=== PATIENT | male | born 1945 | race Caucasian/White ===

== ENCOUNTER 2020-03-08 20:43 | Inpatient (IN) | payer MEDICARE ==
[~2020-03-08] VITALS: Ht 175.3 cm; Wt 83.5 kg
[~2020-03-08 20:43] MED LIST: ALLOPURINOL100 MG PO; GEMFIBROZIL600 MG PO; GLIMEPIRIDE2 MG PO; METFORMIN HCL500 MG PO
[2020-03-08] MEDS ORDERED: SODIUM CHLORIDE 0.9% 1000ML 1,000 ML IV ONE (21:00)
[2020-03-08 21:10] LABS: BASOPHILS # (AUTO) 0.1 (0.0-0.1); BASOPHILS % 0.6 % (0.0-1.0); EOSINOPHILS # (AUTO) 0.3 (0.0-0.4); EOSINOPHILS % 3.2 % (0.0-6.0); HEMATOCRIT 33.1 % (38.2-49.6); HEMOGLOBIN 10.6 g/dL (14.0-18.0); LYMPHOCYTES % 11.9 % (18.0-39.1); MEAN CORPUSCULAR HEMOGLOBIN 27.7 pg (28-32); MEAN CORPUSCULAR VOLUME 86.4 fL (81-99); MONOCYTES # (AUTO) 0.9 (0.2-0.8); MONOCYTES % 10.3 % (4.4-11.3); NEUTROPHILS # (AUTO) 6.4 (2.1-6.9); NEUTROPHILS % 72.7 % (38.7-80.0); PLATELET COUNT 344 x10e3/uL (140-360); RED BLOOD COUNT 3.83 x10e6/uL (4.3-5.7); RED CELL DISTRIBUTION WIDTH 13.5 % (11.7-14.4)
[2020-03-08 21:28] LABS: ALBUMIN 3.1 g/dL (3.5-5.0); ALBUMIN/GLOBULIN RATIO 0.6 (0.8-2.0); ANION GAP 15.8 mmol/L (8-16); BLOOD UREA NITROGEN 35 mg/dL (7-26); BUN/CREATININE RATIO 20 (6-25); CALCIUM 9.1 mg/dL (8.4-10.2); CARBON DIOXIDE 21 mmol/L (22-29); CHLORIDE 104 mmol/L (98-107); CREATINE KINASE 18 IU/L (30-200); CREATININE, SERUM 1.71 mg/dL (0.72-1.25); EST GLOMERULAR FILTRATION RATE 39 ML/MIN (60-); GLUCOSE 167 mg/dL (74-118); POTASSIUM 4.8 mmol/L (3.5-5.1); SODIUM 136 mmol/L (136-145)
[2020-03-08 21:30] LABS: ALANINE AMINOTRANSFERASE < 6 IU/L (0-55)
[2020-03-08 21:53] LABS: CLARITY,URINE CLOUDY (CLEAR); COLOR,URINE YELLOW (YELLOW); KETONES,URINE NEGATIVE (NEGATIVE); LEUKOCYTE ESTERASE ,URINE MODERATE (NEGATIVE); NITRITE,URINE POSITIVE (NEGATIVE); PROTEIN,URINE DIPSTICK 2+ (NEGATIVE); URINE UROBILINOGEN 0.2 mg/dL (0.2 - 1)
[2020-03-08 21:55] LABS: ALKALINE PHOSPHATASE 89 IU/L (40-150)
[2020-03-08 22:04] LABS: BACTERIA,URINE MANY /HPF; EPITHELIAL CELLS,URINE FEW /LPF; WBC,URINE (MAN) >50 /HPF (0-5)
[2020-03-08] MEDS ORDERED: DEXTROSE 50% SYRINGE 50 ML IV PRN (22:30)
[2020-03-08] MEDS ORDERED: ACETAMINOPHEN 325 MG TAB PO PRN (22:30)
[2020-03-08] MEDS: SODIUM CHLORIDE 0.9% 1000ML 1,000 ML IV SCH (23:25)
[2020-03-08] MEDS: PIPERACILLIN/TAZO 2.25 GM 50 ML IV SCH (23:26)
[2020-03-09] VITALS (10 sets, daily range): BP systolic 108–134; BP diastolic 54–74
[2020-03-09] MEDS ORDERED: PRALUENT P75 MG/1 ML SC (01:37)
[2020-03-09] MEDS ORDERED: PRAMIPEXOLE D0.25 MG PO (01:37)
[2020-03-09] MEDS ORDERED: FLUCONAZOLE100 MG PO (01:37)
[2020-03-09] MEDS ORDERED: FLOMAX0.4 MG PO (01:37)
[2020-03-09] MEDS ORDERED: RYTARY ER 36.21 EACH PO (01:37)
[2020-03-09] MEDS ORDERED: ASPIRIN81 MG PO (01:37)
[2020-03-09 06:13] LABS: BASOPHILS # (AUTO) 0.1 (0.0-0.1); BASOPHILS % 0.6 % (0.0-1.0); EOSINOPHILS # (AUTO) 0.1 (0.0-0.4); EOSINOPHILS % 1.2 % (0.0-6.0); HEMATOCRIT 29.6 % (38.2-49.6); HEMOGLOBIN 9.5 g/dL (14.0-18.0); LYMPHOCYTES # (AUTO) 1.3 (1.0-3.2); LYMPHOCYTES % 14.2 % (18.0-39.1); MEAN CORPUSCULAR HEMOGLOBIN 27.9 pg (28-32); MEAN CORPUSCULAR HGB CONC 32.1 g/dL (31-35); MEAN CORPUSCULAR VOLUME 86.8 fL (81-99); MONOCYTES # (AUTO) 0.9 (0.2-0.8); MONOCYTES % 9.9 % (4.4-11.3); NEUTROPHILS # (AUTO) 6.6 (2.1-6.9); NEUTROPHILS % 73.4 % (38.7-80.0); PLATELET COUNT 301 x10e3/uL (140-360); RED BLOOD COUNT 3.41 x10e6/uL (4.3-5.7); RED CELL DISTRIBUTION WIDTH 13.6 % (11.7-14.4)
[2020-03-09] MEDS: SODIUM CHLORIDE 0.9% 1000ML 1,000 ML IV SCH ×3 (06:16→20:59)
[2020-03-09 06:37] LABS: ALBUMIN 2.7 g/dL (3.5-5.0); ALBUMIN/GLOBULIN RATIO 0.6 (0.8-2.0); ALKALINE PHOSPHATASE 78 IU/L (40-150); ANION GAP 13.5 mmol/L (8-16); BLOOD UREA NITROGEN 30 mg/dL (7-26); BUN/CREATININE RATIO 23 (6-25); CALCIUM 8.5 mg/dL (8.4-10.2); CARBON DIOXIDE 20 mmol/L (22-29); CHLORIDE 108 mmol/L (98-107); CREATININE, SERUM 1.32 mg/dL (0.72-1.25); EST GLOMERULAR FILTRATION RATE 53 ML/MIN (60-); GLUCOSE 110 mg/dL (74-118); POTASSIUM 4.5 mmol/L (3.5-5.1); SODIUM 137 mmol/L (136-145)
[2020-03-09 06:41] LABS: ALANINE AMINOTRANSFERASE < 6 IU/L (0-55)
[2020-03-09] MEDS: INSULIN REGULAR, HUMAN 100 UNIT/1 ML 3ML VIAL SQ SCH ×4 (07:30→20:59)
[2020-03-09] MEDS: CARBIDOPA PO SCH ×3 (09:00→20:59)
[2020-03-09] MEDS: LEVODOPA PO SCH ×3 (09:00→20:59)
[2020-03-09] MEDS ORDERED: TAMSULOSIN HCL 0.4 MG CAP PO SCH (09:00)
[2020-03-09] MEDS: ASPIRIN 81 MG CHEW TAB PO SCH (09:44)
[2020-03-09] MEDS: FLUCONAZOLE 100 MG TAB PO SCH (09:45)
[2020-03-09] MEDS: GEMFIBROZIL 600 MG TAB PO SCH ×2 (09:45→17:18)
[2020-03-09] MEDS: PRAMIPEXOLE DIHYDROCHLORIDE 0.25 MG TAB PO SCH ×3 (09:45→20:59)
[2020-03-09] MEDS: PIPERACILLIN/TAZO 2.25 GM 50 ML IV SCH ×2 (10:28→22:45)
[2020-03-09] MEDS: TAMSULOSIN HCL 0.4 MG CAP PO SCH (20:58)
[2020-03-10] VITALS (8 sets, daily range): BP systolic 122–150; BP diastolic 56–101
[2020-03-10 05:49] LABS: ANION GAP 13.5 mmol/L (8-16); CALCIUM 8.2 mg/dL (8.4-10.2); CREATININE, SERUM 1.31 mg/dL (0.72-1.25); POTASSIUM 4.5 mmol/L (3.5-5.1)
[2020-03-10] MEDS: SODIUM CHLORIDE 0.9% 1000ML 1,000 ML IV SCH ×2 (06:36→15:44)
[2020-03-10] MEDS: INSULIN REGULAR, HUMAN 100 UNIT/1 ML 3ML VIAL SQ SCH ×5 (07:30→21:00)
[2020-03-10] MEDS: ASPIRIN 81 MG CHEW TAB PO SCH (09:05)
[2020-03-10] MEDS: FLUCONAZOLE 100 MG TAB PO SCH (09:05)
[2020-03-10] MEDS: GEMFIBROZIL 600 MG TAB PO SCH ×2 (09:05→18:00)
[2020-03-10] MEDS: PRAMIPEXOLE DIHYDROCHLORIDE 0.25 MG TAB PO SCH ×3 (09:07→20:25)
[2020-03-10] MEDS: LEVODOPA PO SCH ×3 (09:10→20:26)
[2020-03-10] MEDS: CARBIDOPA PO SCH ×3 (09:10→20:26)
[2020-03-10] MEDS: PIPERACILLIN/TAZO 2.25 GM 50 ML IV SCH (09:30)
[2020-03-10] MEDS: PIPER-TAZ 3.375 GM 50 ML IV SCH (18:42)
[2020-03-10] MEDS: TAMSULOSIN HCL 0.4 MG CAP PO SCH (20:00)
[2020-03-11] VITALS: BP 136/73
[2020-03-11 04:00] VITALS: BP 133/72
[2020-03-11] MEDS: PIPER-TAZ 3.375 GM 50 ML IV SCH ×5 (06:00→23:10)
[2020-03-11] MEDS: SODIUM CHLORIDE 0.9% 1000ML 1,000 ML IV SCH ×3 (06:30→16:44)
[2020-03-11] MEDS: INSULIN REGULAR, HUMAN 100 UNIT/1 ML 3ML VIAL SQ SCH ×4 (07:30→20:39)
[2020-03-11 07:35] VITALS: BP 120/53
[2020-03-11] MEDS: PRAMIPEXOLE DIHYDROCHLORIDE 0.25 MG TAB PO SCH ×3 (08:32→20:06)
[2020-03-11] MEDS: LEVODOPA PO SCH ×3 (08:32→20:06)
[2020-03-11] MEDS: ASPIRIN 81 MG CHEW TAB PO SCH (08:32)
[2020-03-11] MEDS: CARBIDOPA PO SCH ×3 (08:32→20:06)
[2020-03-11] MEDS: GEMFIBROZIL 600 MG TAB PO SCH ×2 (08:33→16:44)
[2020-03-11] MEDS: FLUCONAZOLE 100 MG TAB PO SCH (08:42)
[2020-03-11 15:14] VITALS: BP 140/70
[2020-03-11 20:00] VITALS: BP 143/68
[2020-03-11] MEDS: TAMSULOSIN HCL 0.4 MG CAP PO SCH (20:06)
[2020-03-12] VITALS: BP 127/65
[2020-03-12 04:00] VITALS: BP 131/73
[2020-03-12] MEDS: PIPER-TAZ 3.375 GM 50 ML IV SCH ×2 (05:54→11:58)
[2020-03-12] MEDS: SODIUM CHLORIDE 0.9% 1000ML 1,000 ML IV SCH ×2 (05:54→06:30)
[2020-03-12 06:46] LABS: BASOPHILS # (AUTO) 0.1 (0.0-0.1); BASOPHILS % 1.3 % (0.0-1.0); EOSINOPHILS # (AUTO) 0.5 (0.0-0.4); EOSINOPHILS % 9.5 % (0.0-6.0); HEMATOCRIT 27.5 % (38.2-49.6); HEMOGLOBIN 8.6 g/dL (14.0-18.0); LYMPHOCYTES # (AUTO) 1.5 (1.0-3.2); LYMPHOCYTES % 26.7 % (18.0-39.1); MEAN CORPUSCULAR HEMOGLOBIN 27.7 pg (28-32); MEAN CORPUSCULAR HGB CONC 31.3 g/dL (31-35); MEAN CORPUSCULAR VOLUME 88.7 fL (81-99); MONOCYTES # (AUTO) 0.8 (0.2-0.8); MONOCYTES % 14.6 % (4.4-11.3); NEUTROPHILS # (AUTO) 2.6 (2.1-6.9); NEUTROPHILS % 47.2 % (38.7-80.0); PLATELET COUNT 299 x10e3/uL (140-360); RED CELL DISTRIBUTION WIDTH 13.8 % (11.7-14.4)
[2020-03-12 07:09] LABS: ANION GAP 11.3 mmol/L (8-16); CALCIUM 8.2 mg/dL (8.4-10.2); CREATININE, SERUM 1.23 mg/dL (0.72-1.25); POTASSIUM 4.3 mmol/L (3.5-5.1)
[2020-03-12] MEDS: INSULIN REGULAR, HUMAN 100 UNIT/1 ML 3ML VIAL SQ SCH ×2 (07:30→11:30)
[2020-03-12] MEDS: FLUCONAZOLE 100 MG TAB PO SCH (08:15)
[2020-03-12] MEDS: LEVODOPA PO SCH (08:15)
[2020-03-12] MEDS: CARBIDOPA PO SCH (08:15)
[2020-03-12] MEDS: ASPIRIN 81 MG CHEW TAB PO SCH (08:15)
[2020-03-12] MEDS: GEMFIBROZIL 600 MG TAB PO SCH (08:15)
[2020-03-12] MEDS: PRAMIPEXOLE DIHYDROCHLORIDE 0.25 MG TAB PO SCH (08:15)
[2020-03-12 08:22] VITALS: BP 131/69
[2020-03-12 08:41] VITALS: BP 131/69
[2020-03-12] MEDS ORDERED: BACTRIM DS TAB1 EACH PO (09:21)
[2020-03-12 12:23] VITALS: BP 144/77
== END 2020-03-12 12:20 | disposition home or self-care (01) | DRG 872 ==
LOC: ER 20:53 → ERHOLD 22:31 → MED/SURG3 03-09 00:02
PROVIDERS: ADMIT Family Medicine; ATTEND Family Medicine
DX: A41.9 Sepsis, unspecified organism (principal); N39.0 Urinary tract infection, site not specified; N17.9 Acute kidney failure, unspecified; N18.4 Chronic kidney disease, stage 4 (severe); I69.320 Aphasia following cerebral infarction; I25.2 Old myocardial infarction; E78.5 Hyperlipidemia, unspecified; E11.9 Type 2 diabetes mellitus without complications; I25.10 Atherosclerotic heart disease of native coronary artery without angina pectoris; Z20.828 Contact with and (suspected) exposure to other viral communicable diseases; I12.9 Hypertensive chronic kidney disease with stage 1 through stage 4 chronic kidney disease, or unspecified chronic kidney disease
CPT/HCPCS: 36415; 71045; 74176; 80048; 80053; 81001; 82550; 82553; 82948; 83605; 84484; 85025; 87040; 87071; 87086; 87186; 87205; 87400; 93005; 99284; J1817; J2543; J7030; U0002

== ENCOUNTER 2020-04-29 15:45 | Inpatient (IN) | payer MEDICARE ==
[~2020-04-29] VITALS: Ht 172.7 cm; Wt 89.8 kg
[~2020-04-29 15:45] MED LIST changes: +ASPIRIN81 MG PO; +BACTRIM DS TAB1 EACH PO; +FLOMAX0.4 MG PO; +FLUCONAZOLE100 MG PO; +PRALUENT P75 MG/1 ML SC; +PRAMIPEXOLE D0.25 MG PO; +RYTARY ER 36.21 EACH PO
[2020-04-29] MEDS: PIPER-TAZ 3.375 GM 50 ML IV SCH ×2 (16:56→22:44)
[2020-04-29 17:05] LABS: BASOPHILS # (AUTO) 0.1 (0.0-0.1); BASOPHILS % 0.8 % (0.0-1.0); EOSINOPHILS # (AUTO) 0.5 (0.0-0.4); EOSINOPHILS % 5.8 % (0.0-6.0); HEMATOCRIT 32.6 % (38.2-49.6); HEMOGLOBIN 10.2 g/dL (14.0-18.0); LYMPHOCYTES # (AUTO) 1.6 (1.0-3.2); LYMPHOCYTES % 19.8 % (18.0-39.1); MEAN CORPUSCULAR HEMOGLOBIN 27.2 pg (28-32); MEAN CORPUSCULAR HGB CONC 31.3 g/dL (31-35); MEAN CORPUSCULAR VOLUME 86.9 fL (81-99); MONOCYTES % 12.3 % (4.4-11.3); NEUTROPHILS # (AUTO) 4.8 (2.1-6.9); NEUTROPHILS % 60.9 % (38.7-80.0); PLATELET COUNT 336 x10e3/uL (140-360); RED BLOOD COUNT 3.75 x10e6/uL (4.3-5.7); RED CELL DISTRIBUTION WIDTH 14.4 % (11.7-14.4)
[2020-04-29 17:15] LABS: INR 1.13; PROTHROMBIN TIME 15.2 seconds (11.9-14.5)
[2020-04-29] MEDS ORDERED: MORPHINE SULFATE INJ 4 MG/ML INJ 1ML IV PRN (17:15)
[2020-04-29] MEDS ORDERED: ONDANSETRON HCL INJ 2MG/ML 2ML 2 MG/ML VIAL IV PRN (17:15)
[2020-04-29 17:16] LABS: PARTIAL THROMBOPLASTIN TIME 52.8 seconds (23.8-35.5)
[2020-04-29 17:25] LABS: ALBUMIN 3.1 g/dL (3.5-5.0); ALBUMIN/GLOBULIN RATIO 0.7 (0.8-2.0); ALKALINE PHOSPHATASE 65 IU/L (40-150); ANION GAP 16.5 mmol/L (8-16); BLOOD UREA NITROGEN 27 mg/dL (7-26); BUN/CREATININE RATIO 19 (6-25); CALCIUM 8.6 mg/dL (8.4-10.2); CARBON DIOXIDE 19 mmol/L (22-29); CHLORIDE 106 mmol/L (98-107); CREATININE, SERUM 1.43 mg/dL (0.72-1.25); EST GLOMERULAR FILTRATION RATE 48 ML/MIN (60-); GLUCOSE 133 mg/dL (74-118); POTASSIUM 4.5 mmol/L (3.5-5.1); SODIUM 137 mmol/L (136-145)
[2020-04-29 17:32] LABS: ALANINE AMINOTRANSFERASE < 6 IU/L (0-55)
[2020-04-29] MEDS: SODIUM CHLORIDE 0.9% 1000ML 1,000 ML IV SCH (17:33)
[2020-04-29 18:28] LABS: CLARITY,URINE HAZY (CLEAR); COLOR,URINE YELLOW (YELLOW); KETONES,URINE NEGATIVE (NEGATIVE); LEUKOCYTE ESTERASE ,URINE NEGATIVE (NEGATIVE); NITRITE,URINE NEGATIVE (NEGATIVE); PROTEIN,URINE DIPSTICK 2+ (NEGATIVE)
[2020-04-29 18:29] LABS: URINE UROBILINOGEN 0.2 mg/dL (0.2 - 1)
[2020-04-29 18:35] LABS: BACTERIA,URINE FEW /HPF; EPITHELIAL CELLS,URINE FEW /LPF
[2020-04-30] MEDS: SODIUM CHLORIDE 0.9% 1000ML 1,000 ML IV SCH ×2 (04:05→18:46)
[2020-04-30] MEDS: PIPER-TAZ 3.375 GM 50 ML IV SCH ×4 (04:05→21:24)
[2020-04-30 04:13] LABS: BASOPHILS # (AUTO) 0.1 (0.0-0.1); BASOPHILS % 0.9 % (0.0-1.0); EOSINOPHILS # (AUTO) 0.5 (0.0-0.4); EOSINOPHILS % 7.8 % (0.0-6.0); HEMATOCRIT 30.3 % (38.2-49.6); HEMOGLOBIN 9.6 g/dL (14.0-18.0); LYMPHOCYTES # (AUTO) 1.5 (1.0-3.2); LYMPHOCYTES % 21.8 % (18.0-39.1); MEAN CORPUSCULAR HEMOGLOBIN 27.6 pg (28-32); MEAN CORPUSCULAR HGB CONC 31.7 g/dL (31-35); MEAN CORPUSCULAR VOLUME 87.1 fL (81-99); MONOCYTES # (AUTO) 0.9 (0.2-0.8); MONOCYTES % 12.7 % (4.4-11.3); NEUTROPHILS # (AUTO) 3.8 (2.1-6.9); NEUTROPHILS % 56.2 % (38.7-80.0); PLATELET COUNT 308 x10e3/uL (140-360); RED BLOOD COUNT 3.48 x10e6/uL (4.3-5.7); RED CELL DISTRIBUTION WIDTH 14.4 % (11.7-14.4)
[2020-04-30 04:32] LABS: ALBUMIN 2.7 g/dL (3.5-5.0); ALBUMIN/GLOBULIN RATIO 0.7 (0.8-2.0); ANION GAP 13.9 mmol/L (8-16); CALCIUM 7.9 mg/dL (8.4-10.2); CREATININE, SERUM 1.31 mg/dL (0.72-1.25); POTASSIUM 4.9 mmol/L (3.5-5.1)
[2020-04-30] MEDS: FLUCONAZOLE 100 MG TAB PO SCH (10:00)
[2020-04-30] MEDS: ASPIRIN 81 MG CHEW TAB PO SCH (10:00)
[2020-04-30] MEDS: TAMSULOSIN HCL 0.4 MG CAP PO SCH (10:00)
[2020-04-30] MEDS: CARBIDOPA PO SCH ×2 (10:37→21:00)
[2020-04-30] MEDS: LEVODOPA PO SCH ×2 (10:37→21:00)
[2020-04-30] MEDS: GEMFIBROZIL 600 MG TAB PO SCH ×2 (13:34→16:32)
[2020-04-30] MEDS: PRAMIPEXOLE DIHYDROCHLORIDE 0.25 MG TAB PO SCH ×3 (13:34→21:24)
[2020-04-30] MEDS ORDERED: OZEMPIC1 MG/0.75 SC (17:24)
[2020-04-30 17:30] VITALS: BP 154/63
[2020-04-30 18:13] VITALS: BP 154/63
[2020-04-30 19:57] VITALS: BP 146/66
[2020-05-01] VITALS (9 sets, daily range): BP systolic 134–146; BP diastolic 64–72
[2020-05-01] MEDS: PIPER-TAZ 3.375 GM 50 ML IV SCH ×4 (03:49→21:12)
[2020-05-01 05:31] LABS: BASOPHILS # (AUTO) 0.1 (0.0-0.1); BASOPHILS % 0.7 % (0.0-1.0); EOSINOPHILS # (AUTO) 0.5 (0.0-0.4); HEMATOCRIT 28.6 % (38.2-49.6); HEMOGLOBIN 8.9 g/dL (14.0-18.0); LYMPHOCYTES # (AUTO) 1.5 (1.0-3.2); MEAN CORPUSCULAR HEMOGLOBIN 27.1 pg (28-32); MEAN CORPUSCULAR HGB CONC 31.1 g/dL (31-35); MEAN CORPUSCULAR VOLUME 87.2 fL (81-99); MONOCYTES # (AUTO) 0.9 (0.2-0.8); MONOCYTES % 12.9 % (4.4-11.3); NEUTROPHILS # (AUTO) 4.2 (2.1-6.9); PLATELET COUNT 302 x10e3/uL (140-360); RED BLOOD COUNT 3.28 x10e6/uL (4.3-5.7); RED CELL DISTRIBUTION WIDTH 14.2 % (11.7-14.4)
[2020-05-01 06:01] LABS: ALBUMIN 2.5 g/dL (3.5-5.0); ALBUMIN/GLOBULIN RATIO 0.7 (0.8-2.0); ALKALINE PHOSPHATASE 52 IU/L (40-150); ANION GAP 13.6 mmol/L (8-16); BLOOD UREA NITROGEN 21 mg/dL (7-26); BUN/CREATININE RATIO 18 (6-25); CALCIUM 7.8 mg/dL (8.4-10.2); CARBON DIOXIDE 20 mmol/L (22-29); CHLORIDE 112 mmol/L (98-107); CREATININE, SERUM 1.19 mg/dL (0.72-1.25); EST GLOMERULAR FILTRATION RATE 59 ML/MIN (60-); GLUCOSE 93 mg/dL (74-118); POTASSIUM 4.6 mmol/L (3.5-5.1); SODIUM 141 mmol/L (136-145)
[2020-05-01 07:28] LABS: ALANINE AMINOTRANSFERASE < 6 IU/L (0-55)
[2020-05-01] MEDS: ASPIRIN 81 MG CHEW TAB PO SCH (08:33)
[2020-05-01] MEDS: TAMSULOSIN HCL 0.4 MG CAP PO SCH (08:33)
[2020-05-01] MEDS: GEMFIBROZIL 600 MG TAB PO SCH ×2 (08:33→16:22)
[2020-05-01] MEDS: FLUCONAZOLE 100 MG TAB PO SCH (08:33)
[2020-05-01] MEDS: PRAMIPEXOLE DIHYDROCHLORIDE 0.25 MG TAB PO SCH ×3 (08:34→20:33)
[2020-05-01] MEDS: LEVODOPA PO SCH ×3 (08:35→20:33)
[2020-05-01] MEDS: CARBIDOPA PO SCH ×3 (08:35→20:33)
[2020-05-01] MEDS ORDERED: SODIUM CHLORIDE 0.9% 250ML 250 ML ONE (15:13)
[2020-05-02] VITALS (8 sets, daily range): BP systolic 141–159; BP diastolic 73–85
[2020-05-02] MEDS: PIPER-TAZ 3.375 GM 50 ML IV SCH ×4 (04:06→21:56)
[2020-05-02] MEDS: CARBIDOPA PO SCH ×3 (09:00→21:00)
[2020-05-02] MEDS: PRAMIPEXOLE DIHYDROCHLORIDE 0.25 MG TAB PO SCH ×3 (09:00→21:56)
[2020-05-02] MEDS: ASPIRIN 81 MG CHEW TAB PO SCH (09:00)
[2020-05-02] MEDS: FLUCONAZOLE 100 MG TAB PO SCH (09:00)
[2020-05-02] MEDS: LEVODOPA PO SCH ×3 (09:00→21:00)
[2020-05-02] MEDS: GEMFIBROZIL 600 MG TAB PO SCH ×2 (09:00→17:00)
[2020-05-02] MEDS: TAMSULOSIN HCL 0.4 MG CAP PO SCH (09:00)
[2020-05-03] VITALS (8 sets, daily range): BP systolic 132–142; BP diastolic 71–93
[2020-05-03] MEDS: PIPER-TAZ 3.375 GM 50 ML IV SCH ×4 (04:00→21:49)
[2020-05-03] MEDS: FLUCONAZOLE 100 MG TAB PO SCH (08:54)
[2020-05-03] MEDS: ASPIRIN 81 MG CHEW TAB PO SCH (08:54)
[2020-05-03] MEDS: TAMSULOSIN HCL 0.4 MG CAP PO SCH (08:55)
[2020-05-03] MEDS: GEMFIBROZIL 600 MG TAB PO SCH ×2 (08:55→17:12)
[2020-05-03] MEDS: PRAMIPEXOLE DIHYDROCHLORIDE 0.25 MG TAB PO SCH ×3 (08:57→21:49)
[2020-05-03] MEDS: CARBIDOPA PO SCH ×3 (09:00→21:50)
[2020-05-03] MEDS: LEVODOPA PO SCH ×3 (09:00→21:50)
[2020-05-04] VITALS: BP 119/66
[2020-05-04 04:00] VITALS: BP 157/79
[2020-05-04] MEDS: PIPER-TAZ 3.375 GM 50 ML IV SCH ×2 (04:00→11:53)
[2020-05-04 05:18] LABS: BASOPHILS # (AUTO) 0.1 (0.0-0.1); BASOPHILS % 0.9 % (0.0-1.0); EOSINOPHILS # (AUTO) 0.7 (0.0-0.4); EOSINOPHILS % 10.9 % (0.0-6.0); HEMATOCRIT 29.5 % (38.2-49.6); HEMOGLOBIN 9.4 g/dL (14.0-18.0); LYMPHOCYTES # (AUTO) 1.6 (1.0-3.2); LYMPHOCYTES % 23.6 % (18.0-39.1); MEAN CORPUSCULAR HEMOGLOBIN 27.3 pg (28-32); MEAN CORPUSCULAR HGB CONC 31.9 g/dL (31-35); MEAN CORPUSCULAR VOLUME 85.8 fL (81-99); MONOCYTES # (AUTO) 0.9 (0.2-0.8); MONOCYTES % 13.1 % (4.4-11.3); NEUTROPHILS # (AUTO) 3.5 (2.1-6.9); NEUTROPHILS % 50.8 % (38.7-80.0); PLATELET COUNT 306 x10e3/uL (140-360); RED BLOOD COUNT 3.44 x10e6/uL (4.3-5.7); RED CELL DISTRIBUTION WIDTH 13.7 % (11.7-14.4)
[2020-05-04 05:46] LABS: ANION GAP 16.5 mmol/L (8-16); BLOOD UREA NITROGEN 15 mg/dL (7-26); BUN/CREATININE RATIO 13 (6-25); CALCIUM 8.4 mg/dL (8.4-10.2); CARBON DIOXIDE 21 mmol/L (22-29); CHLORIDE 106 mmol/L (98-107); CREATININE, SERUM 1.16 mg/dL (0.72-1.25); EST GLOMERULAR FILTRATION RATE > 60 ML/MIN (60-); GLUCOSE 94 mg/dL (74-118); POTASSIUM 4.5 mmol/L (3.5-5.1); SODIUM 139 mmol/L (136-145)
[2020-05-04 08:16] VITALS: BP 146/61
[2020-05-04] MEDS: ASPIRIN 81 MG CHEW TAB PO SCH (08:42)
[2020-05-04] MEDS: PRAMIPEXOLE DIHYDROCHLORIDE 0.25 MG TAB PO SCH (08:44)
[2020-05-04] MEDS: TAMSULOSIN HCL 0.4 MG CAP PO SCH (08:44)
[2020-05-04] MEDS: CARBIDOPA PO SCH (08:44)
[2020-05-04] MEDS: GEMFIBROZIL 600 MG TAB PO SCH (08:44)
[2020-05-04] MEDS: LEVODOPA PO SCH (08:44)
[2020-05-04 08:46] VITALS: BP 146/61
[2020-05-04] MEDS: FLUCONAZOLE 100 MG TAB PO SCH (11:53)
[2020-05-04 16:08] VITALS: BP 145/98
[2020-05-10] MEDS ORDERED: ASPIRIN81 MG PO (10:47)
[2020-05-10] MEDS ORDERED: MIRAPEX0.25 MG PO (10:47)
[2020-05-10] MEDS ORDERED: RYTARY ER 36.21 EACH PO (10:47)
[2020-05-10] MEDS ORDERED: FLOMAX0.4 MG PO (10:47)
[2020-05-10] MEDS ORDERED: OMEGA-31000 MG PO (10:47)
[2020-05-10] MEDS ORDERED: LOPID600 MG PO (10:47)
[2020-05-10] MEDS ORDERED: OZEMPIC1 MG/0.75 SC (10:58)
[2020-05-10] MEDS ORDERED: PRALUENT P75 MG/1 ML SC (10:58)
[2020-05-10] MEDS ORDERED: CEFUROXIME250 MG PO (11:04)
== END 2020-05-04 16:37 | disposition home or self-care (01) | DRG 728 ==
LOC: ER 16:06 → ERHOLD 17:18 → MED/SURG 04-30 17:00 → MED/SURG2 05-01 14:39
PROVIDERS: ADMIT Family Medicine; ATTEND Family Medicine
DX: N45.2 Orchitis (principal); N39.0 Urinary tract infection, site not specified; N17.9 Acute kidney failure, unspecified; Z86.73 Personal history of transient ischemic attack (TIA), and cerebral infarction without residual deficits; E78.5 Hyperlipidemia, unspecified; Z85.528 Personal history of other malignant neoplasm of kidney; Z96.642 Presence of left artificial hip joint; Z20.822 Contact with and (suspected) exposure to COVID-19; I25.10 Atherosclerotic heart disease of native coronary artery without angina pectoris; Z95.5 Presence of coronary angioplasty implant and graft; G20 Parkinson's disease; M16.12 Unilateral primary osteoarthritis, left hip; N40.0 Benign prostatic hyperplasia without lower urinary tract symptoms; N28.1 Cyst of kidney, acquired; N42.0 Calculus of prostate; D64.9 Anemia, unspecified; I12.9 Hypertensive chronic kidney disease with stage 1 through stage 4 chronic kidney disease, or unspecified chronic kidney disease; N18.9 Chronic kidney disease, unspecified; E11.22 Type 2 diabetes mellitus with diabetic chronic kidney disease
CPT/HCPCS: 36415; 80048; 80053; 81001; 82948; 85025; 85610; 85730; 87040; 87086; 99284; J2270; J2405; J2543; J7030; J7050; U0002

== ENCOUNTER 2020-05-15 10:48 | Inpatient (IN) | payer MEDICARE ==
[2020-05-11 11:25] LABS: BASOPHILS # (AUTO) 0.1 (0.0-0.1); EOSINOPHILS # (AUTO) 0.6 (0.0-0.4); EOSINOPHILS % 8.6 % (0.0-6.0); HEMATOCRIT 34.8 % (38.2-49.6); LYMPHOCYTES # (AUTO) 1.6 (1.0-3.2); LYMPHOCYTES % 23.2 % (18.0-39.1); MEAN CORPUSCULAR HEMOGLOBIN 27.2 pg (28-32); MEAN CORPUSCULAR HGB CONC 31.6 g/dL (31-35); MEAN CORPUSCULAR VOLUME 86.1 fL (81-99); MONOCYTES # (AUTO) 0.6 (0.2-0.8); MONOCYTES % 9.3 % (4.4-11.3); NEUTROPHILS # (AUTO) 3.8 (2.1-6.9); NEUTROPHILS % 56.4 % (38.7-80.0); PLATELET COUNT 408 x10e3/uL (140-360); RED BLOOD COUNT 4.04 x10e6/uL (4.3-5.7); RED CELL DISTRIBUTION WIDTH 14.2 % (11.7-14.4)
[2020-05-11 11:40] LABS: INR 1.04; PROTHROMBIN TIME 14.2 seconds (11.9-14.5)
[2020-05-11 11:41] LABS: PARTIAL THROMBOPLASTIN TIME 31.3 seconds (23.8-35.5)
[2020-05-11 11:45] LABS: CALCIUM 8.7 mg/dL (8.4-10.2); CREATININE, SERUM 1.4 mg/dL (0.72-1.25)
[~2020-05-15] VITALS: Ht 172.7 cm; Wt 90.4 kg
[~2020-05-15 10:48] MED LIST changes: +CEFUROXIME250 MG PO; +LOPID600 MG PO; +MIRAPEX0.25 MG PO; +OMEGA-31000 MG PO; +OZEMPIC1 MG/0.75 SC
[2020-05-15] MEDS ORDERED: CEFEPIME 1GM/NS 0.9% 50 ML 50 ML IV ONE (11:22)
[2020-05-15] MEDS ORDERED: GENTAMICIN 80MG/NS 100 ML 100 ML IV ONE (11:22)
[2020-05-15] MEDS ORDERED: MICROFIBRILLER COLLAGEN HEMOSTAT 1 GM POWDER TP ONE (12:20)
[2020-05-15] MEDS ORDERED: MANNITOL 25% 12.5GM/50ML 50 ML ONE (12:20)
[2020-05-15] MEDS ORDERED: MIDAZOLAM HCL 2 MG/2 ML VIAL ONE (12:46)
[2020-05-15] MEDS ORDERED: FENTANYL CITRATE/PF 100MCG/2 ML INJ ONE (12:46)
[2020-05-15] MEDS ORDERED: KETAMINE HCL INJ 50 MG/ML 10 ML VIAL ONE (12:46)
[2020-05-15] MEDS ORDERED: LIDOCAINE HCL 2% LOCAL INJ 5 ML SDV VIAL INJ ONE (13:27)
[2020-05-15] MEDS ORDERED: DEXAMETHASONE SOD PHOS INJ 4 MG/ML VIAL ONE (13:27)
[2020-05-15] MEDS ORDERED: SEVOFLURANE INHAL SOLN 250 ML PEN BTL ONE (13:27)
[2020-05-15] MEDS ORDERED: GLYCOPYRROLATE INJ 0.2 MG/ML VIAL ONE (13:27)
[2020-05-15] MEDS ORDERED: NEOSTIGMINE 1 MG/ML 10ML VIAL ONE (13:27)
[2020-05-15] MEDS ORDERED: EPHEDRINE SULFATE INJ 50 MG/ML VIAL ONE (13:27)
[2020-05-15] MEDS ORDERED: ONDANSETRON HCL INJ 2MG/ML 2ML 2 MG/ML VIAL ONE (13:27)
[2020-05-15] MEDS ORDERED: ROCURONIUM BROMIDE 10 MG/ML 5ML VIAL IV ONE (13:27)
[2020-05-15] MEDS ORDERED: PROPOFOL IV EMULSION 10 MG/ML 20 ML VIAL ONE (13:27)
[2020-05-15] MEDS ORDERED: ACETAMINOPHEN 1000 MG/100 ML 100 ML IV ONE (16:49)
[2020-05-15] MEDS ORDERED: SUGAMMADEX SODIUM 200 MG/2 ML VIAL IV ONE (16:49)
[2020-05-15] MEDS ORDERED: HYDROMORPHONE 2MG/ML 2 MG/ML ML ONE (16:51)
[2020-05-15] MEDS ORDERED: ONDANSETRON HCL INJ 2MG/ML 2ML 2 MG/ML VIAL IV PRN (17:15)
[2020-05-15] MEDS ORDERED: NALOXONE HCL INJ 0.4 MG/ML AMP IV PRN (17:15)
[2020-05-15] MEDS ORDERED: ACETAMINOPHEN 1000 MG/100 ML IV PRN (17:15)
[2020-05-15] MEDS ORDERED: MORPHINE SULFATE 1 MG/ML 30ML PCA IV PRN (17:15)
[2020-05-15 17:44] LABS: BASOPHILS # (AUTO) 0.1 (0.0-0.1); BASOPHILS % 0.5 % (0.0-1.0); EOSINOPHILS # (AUTO) 0.1 (0.0-0.4); EOSINOPHILS % 0.7 % (0.0-6.0); HEMOGLOBIN 12.2 g/dL (14.0-18.0); LYMPHOCYTES # (AUTO) 1.5 (1.0-3.2); LYMPHOCYTES % 8.7 % (18.0-39.1); MEAN CORPUSCULAR HEMOGLOBIN 27.7 pg (28-32); MEAN CORPUSCULAR HGB CONC 32.1 g/dL (31-35); MEAN CORPUSCULAR VOLUME 86.2 fL (81-99); MONOCYTES # (AUTO) 0.6 (0.2-0.8); MONOCYTES % 3.4 % (4.4-11.3); NEUTROPHILS # (AUTO) 14.4 (2.1-6.9); NEUTROPHILS % 85.6 % (38.7-80.0); PLATELET COUNT 298 x10e3/uL (140-360); RED BLOOD COUNT 4.41 x10e6/uL (4.3-5.7); RED CELL DISTRIBUTION WIDTH 14.1 % (11.7-14.4)
[2020-05-15 18:01] LABS: ANION GAP 15.2 mmol/L (8-16); CALCIUM 7.5 mg/dL (8.4-10.2); CREATININE, SERUM 1.46 mg/dL (0.72-1.25)
[2020-05-15 18:24] LABS: POTASSIUM 6.2 mmol/L (3.5-5.1)
[2020-05-15 19:34] VITALS: BP 138/64
[2020-05-15] MEDS ORDERED: SOD CHL 0.45%/POT CHL 20MEQ 1,000 ML IV SCH (20:00)
[2020-05-15] MEDS: SODIUM CHLORIDE 0.9% 250ML IRRIG IR SCH ×2 (20:14→21:15)
[2020-05-15] MEDS ORDERED: LACTATED RINGER'S 1,000 ML INJ SCH (21:15)
[2020-05-15] MEDS ORDERED: SODIUM CHLORIDE 0.45% 1,000 ML IV ONE (21:15)
[2020-05-15] MEDS ORDERED: DEXTROSE 50% SYRINGE 50 ML IV PRN (21:30)
[2020-05-15] MEDS ORDERED: SODIUM BICARBONATE 8.4% SYRING 50 ML ONE (22:27)
[2020-05-16] VITALS (8 sets, daily range): BP systolic 133–146; BP diastolic 64–77
[2020-05-16] MEDS: CEFEPIME 1GM/NS 0.9% 50 ML 50 ML IV SCH ×2 (00:45→13:05)
[2020-05-16] MEDS: SODIUM CHLORIDE 0.9% 250ML IRRIG IR SCH ×6 (00:46→22:13)
[2020-05-16 05:21] LABS: BASOPHILS % 0.2 % (0.0-1.0); LYMPHOCYTES # (AUTO) 0.8 (1.0-3.2); LYMPHOCYTES % 6.6 % (18.0-39.1); MEAN CORPUSCULAR HEMOGLOBIN 28.1 pg (28-32); MEAN CORPUSCULAR HGB CONC 32.4 g/dL (31-35); MEAN CORPUSCULAR VOLUME 86.7 fL (81-99); MONOCYTES % 8.4 % (4.4-11.3); NEUTROPHILS # (AUTO) 10.4 (2.1-6.9); NEUTROPHILS % 84.2 % (38.7-80.0); PLATELET COUNT 279 x10e3/uL (140-360); RED BLOOD COUNT 4.27 x10e6/uL (4.3-5.7); RED CELL DISTRIBUTION WIDTH 14.6 % (11.7-14.4)
[2020-05-16 05:41] LABS: ANION GAP 18.9 mmol/L (8-16); CALCIUM 7.6 mg/dL (8.4-10.2); CREATININE, SERUM 2.29 mg/dL (0.72-1.25)
[2020-05-16 05:57] LABS: POTASSIUM 6.9 mmol/L (3.5-5.1)
[2020-05-16] MEDS ORDERED: SODIUM CHLORIDE 0.9% 50ML 50 ML ONE (06:58)
[2020-05-16] MEDS ORDERED: CALCIUM GLUCONATE 10% INJ 4.65 MEQ in SODIUM CHLORIDE 0.9% 50ML 50 ML IV ONE (07:00)
[2020-05-16] MEDS ORDERED: DEXTROSE 50% SYRINGE 50 ML IV ONE (07:00)
[2020-05-16] MEDS ORDERED: INSULIN REGULAR, HUMAN 100 UNIT/1 ML 3ML VIAL SQ ONE (07:05)
[2020-05-16] MEDS ORDERED: SOD POLYSTYRENE SULFONATE SUSP 15 GM/60 ML BTL PO ONE (07:05)
[2020-05-16] MEDS: SODIUM CHLORIDE 0.9% 1000ML 1,000 ML IV SCH (07:10)
[2020-05-16] MEDS ORDERED: DEXTROSE 50% SYRINGE 50 ML IV PRN (07:15)
[2020-05-16] MEDS ORDERED: INSULIN LISPRO 100 UNIT/1 ML 3ML VIAL SQ SCH (07:30)
[2020-05-16] MEDS: INSULIN LISPRO 100 UNIT/1 ML 3ML VIAL SQ SCH ×4 (07:30→19:59)
[2020-05-16] MEDS: CARBIDOPA PO SCH ×3 (09:42→22:13)
[2020-05-16] MEDS: GEMFIBROZIL 600 MG TAB PO SCH ×2 (09:42→17:13)
[2020-05-16] MEDS: LEVODOPA PO SCH ×3 (09:42→22:13)
[2020-05-16] MEDS: PRAMIPEXOLE DIHYDROCHLORIDE 0.25 MG TAB PO SCH ×3 (09:42→22:13)
[2020-05-16 12:05] LABS: ANION GAP 15.9 mmol/L (8-16); CALCIUM 7.7 mg/dL (8.4-10.2); CREATININE, SERUM 2.47 mg/dL (0.72-1.25)
[2020-05-16 12:07] LABS: POTASSIUM 5.9 mmol/L (3.5-5.1)
[2020-05-16] MEDS ORDERED: MORPHINE SULFATE 1 MG/ML 30ML PCA IV PRN (13:30)
[2020-05-16] MEDS: FUROSEMIDE INJ 10 MG/ML 2 ML VIAL IV SCH (17:13)
[2020-05-16] MEDS ORDERED: CALCIUM CHLORIDE 10% 1.36 MEQ/ML 10ML SYR IV SCH (19:00)
[2020-05-16] MEDS ORDERED: INSULIN REGULAR, HUMAN 100 UNIT/1 ML 3ML VIAL IV ONE (19:20)
[2020-05-16] MEDS ORDERED: DEXTROSE 50% SYRINGE 50 ML IV SCH (19:22)
[2020-05-16] MEDS ORDERED: CALCIUM CHLORIDE 13.6 MEQ in SODIUM CHLORIDE 0.9% 100 ML IV ONE (19:30)
[2020-05-16] MEDS ORDERED: SOD POLYSTYRENE SULFONATE SUSP 15 GM/60 ML BTL PR ONE (19:30)
[2020-05-16] MEDS: TAMSULOSIN HCL 0.4 MG CAP PO SCH (22:13)
[2020-05-17] VITALS (7 sets, daily range): BP systolic 136–150; BP diastolic 62–76
[2020-05-17] MEDS: CEFEPIME 1GM/NS 0.9% 50 ML 50 ML IV SCH ×3 (00:27→12:13)
[2020-05-17] MEDS: SODIUM CHLORIDE 0.9% 250ML IRRIG IR SCH ×6 (02:57→20:22)
[2020-05-17] MEDS: SODIUM CHLORIDE 0.9% 1000ML 1,000 ML IV SCH ×3 (03:26→20:22)
[2020-05-17 06:29] LABS: BASOPHILS % 0.3 % (0.0-1.0); EOSINOPHILS # (AUTO) 0.1 (0.0-0.4); EOSINOPHILS % 1.3 % (0.0-6.0); HEMATOCRIT 34.7 % (38.2-49.6); HEMOGLOBIN 11.1 g/dL (14.0-18.0); LYMPHOCYTES # (AUTO) 0.5 (1.0-3.2); LYMPHOCYTES % 5.3 % (18.0-39.1); MEAN CORPUSCULAR HEMOGLOBIN 28.2 pg (28-32); MEAN CORPUSCULAR VOLUME 88.3 fL (81-99); MONOCYTES # (AUTO) 0.8 (0.2-0.8); MONOCYTES % 8.7 % (4.4-11.3); NEUTROPHILS # (AUTO) 7.8 (2.1-6.9); NEUTROPHILS % 83.8 % (38.7-80.0); PLATELET COUNT 251 x10e3/uL (140-360); RED BLOOD COUNT 3.93 x10e6/uL (4.3-5.7); RED CELL DISTRIBUTION WIDTH 15.1 % (11.7-14.4)
[2020-05-17 06:57] LABS: ALBUMIN 2.5 g/dL (3.5-5.0); ALBUMIN/GLOBULIN RATIO 0.7 (0.8-2.0); ALKALINE PHOSPHATASE 54 IU/L (40-150); ANION GAP 15.7 mmol/L (8-16); BLOOD UREA NITROGEN 39 mg/dL (7-26); BUN/CREATININE RATIO 13 (6-25); CALCIUM 8.1 mg/dL (8.4-10.2); CARBON DIOXIDE 19 mmol/L (22-29); CHLORIDE 111 mmol/L (98-107); CREATININE, SERUM 3.12 mg/dL (0.72-1.25); EST GLOMERULAR FILTRATION RATE 20 ML/MIN (60-); GLUCOSE 150 mg/dL (74-118); MAGNESIUM 1.7 MG/DL (1.3-2.1); SODIUM 140 mmol/L (136-145)
[2020-05-17 07:03] LABS: ALANINE AMINOTRANSFERASE < 6 IU/L (0-55); POTASSIUM 5.7 mmol/L (3.5-5.1)
[2020-05-17] MEDS: INSULIN LISPRO 100 UNIT/1 ML 3ML VIAL SQ SCH ×4 (07:30→20:22)
[2020-05-17] MEDS: FUROSEMIDE INJ 10 MG/ML 2 ML VIAL IV SCH ×2 (08:57→17:00)
[2020-05-17] MEDS: LEVODOPA PO SCH ×3 (09:00→20:30)
[2020-05-17] MEDS: PRAMIPEXOLE DIHYDROCHLORIDE 0.25 MG TAB PO SCH ×3 (09:00→20:30)
[2020-05-17] MEDS: GEMFIBROZIL 600 MG TAB PO SCH ×2 (09:00→17:00)
[2020-05-17] MEDS: CARBIDOPA PO SCH ×3 (09:00→20:30)
[2020-05-17] MEDS ORDERED: LIDOCAINE HCL 1% LOCAL INJ 20 ML VIAL ONE (11:02)
[2020-05-17] MEDS ORDERED: HEPARIN SOD (PORCINE) 1000 UNIT/ML SDV ONE ×2 (11:38→13:00)
[2020-05-17] MEDS ORDERED: MANNITOL 25% 12.5GM/50ML 100 ML ONE (13:00)
[2020-05-17] MEDS ORDERED: SODIUM CHLORIDE 0.9% 1000ML 2,000 ML ONE (13:00)
[2020-05-17] MEDS ORDERED: SODIUM CHLORIDE 0.9% 1000ML 2,000 ML IV PRN (13:45)
[2020-05-17] MEDS ORDERED: SODIUM CHLORIDE 0.9% 250ML 500 ML IV PRN (13:45)
[2020-05-17] MEDS ORDERED: MANNITOL 25% 12.5GM/50 ML VIAL IV PRN (13:45)
[2020-05-17] MEDS ORDERED: HEPARIN SOD (PORCINE) 1000 UNIT/ML SDV IV PRN (13:45)
[2020-05-17] MEDS: TAMSULOSIN HCL 0.4 MG CAP PO SCH (20:30)
[2020-05-18] VITALS (8 sets, daily range): BP systolic 117–150; BP diastolic 59–86
[2020-05-18] MEDS: CEFEPIME 1GM/NS 0.9% 50 ML 50 ML IV SCH ×2 (00:42→13:42)
[2020-05-18] MEDS: SODIUM CHLORIDE 0.9% 250ML IRRIG IR SCH ×5 (00:48→21:15)
[2020-05-18 06:36] LABS: BASOPHILS # (AUTO) 0.1 (0.0-0.1); BASOPHILS % 0.6 % (0.0-1.0); EOSINOPHILS # (AUTO) 0.1 (0.0-0.4); EOSINOPHILS % 1.5 % (0.0-6.0); HEMATOCRIT 32.3 % (38.2-49.6); HEMOGLOBIN 10.5 g/dL (14.0-18.0); LYMPHOCYTES # (AUTO) 0.8 (1.0-3.2); LYMPHOCYTES % 7.8 % (18.0-39.1); MEAN CORPUSCULAR HEMOGLOBIN 29.5 pg (28-32); MEAN CORPUSCULAR HGB CONC 32.5 g/dL (31-35); MEAN CORPUSCULAR VOLUME 90.7 fL (81-99); MONOCYTES % 10.1 % (4.4-11.3); NEUTROPHILS # (AUTO) 7.6 (2.1-6.9); NEUTROPHILS % 79.2 % (38.7-80.0); PLATELET COUNT 211 x10e3/uL (140-360); RED BLOOD COUNT 3.56 x10e6/uL (4.3-5.7); RED CELL DISTRIBUTION WIDTH 15.4 % (11.7-14.4)
[2020-05-18 07:16] LABS: ANION GAP 17.1 mmol/L (8-16); CREATININE, SERUM 3.01 mg/dL (0.72-1.25); POTASSIUM 5.1 mmol/L (3.5-5.1)
[2020-05-18] MEDS: SODIUM CHLORIDE 0.9% 1000ML 1,000 ML IV SCH ×2 (07:27→17:27)
[2020-05-18] MEDS: INSULIN LISPRO 100 UNIT/1 ML 3ML VIAL SQ SCH ×4 (07:30→21:00)
[2020-05-18] MEDS ORDERED: BISACODYL 10 MG SUPP PR ONE (08:15)
[2020-05-18] MEDS: LEVODOPA PO SCH ×3 (09:00→21:30)
[2020-05-18] MEDS: CARBIDOPA PO SCH ×3 (09:00→21:30)
[2020-05-18] MEDS: PRAMIPEXOLE DIHYDROCHLORIDE 0.25 MG TAB PO SCH ×3 (09:00→21:31)
[2020-05-18] MEDS: DOCUSATE SODIUM 100 MG CAP PO SCH ×3 (09:00→21:30)
[2020-05-18] MEDS: GEMFIBROZIL 600 MG TAB PO SCH ×2 (09:00→17:00)
[2020-05-18] MEDS: CALCIUM CARBONATE 500 MG CHEWABLE TABS PO SCH (21:31)
[2020-05-18] MEDS: TAMSULOSIN HCL 0.4 MG CAP PO SCH (21:31)
[2020-05-19] VITALS (9 sets, daily range): BP systolic 109–148; BP diastolic 50–78
[2020-05-19] MEDS: SODIUM CHLORIDE 0.9% 250ML IRRIG IR SCH ×2 (01:15→02:10)
[2020-05-19] MEDS: SODIUM CHLORIDE 0.9% 1000ML 1,000 ML IV SCH ×3 (02:10→22:12)
[2020-05-19 05:39] LABS: BASOPHILS % 0.5 % (0.0-1.0); EOSINOPHILS # (AUTO) 0.2 (0.0-0.4); EOSINOPHILS % 2.5 % (0.0-6.0); HEMATOCRIT 32.7 % (38.2-49.6); LYMPHOCYTES # (AUTO) 0.8 (1.0-3.2); LYMPHOCYTES % 10.1 % (18.0-39.1); MEAN CORPUSCULAR HEMOGLOBIN 27.5 pg (28-32); MEAN CORPUSCULAR HGB CONC 30.6 g/dL (31-35); MEAN CORPUSCULAR VOLUME 90.1 fL (81-99); MONOCYTES # (AUTO) 0.8 (0.2-0.8); MONOCYTES % 9.9 % (4.4-11.3); NEUTROPHILS # (AUTO) 5.9 (2.1-6.9); NEUTROPHILS % 76.5 % (38.7-80.0); PLATELET COUNT 247 x10e3/uL (140-360); RED BLOOD COUNT 3.63 x10e6/uL (4.3-5.7); RED CELL DISTRIBUTION WIDTH 14.6 % (11.7-14.4)
[2020-05-19 06:03] LABS: ANION GAP 18.3 mmol/L (8-16); CALCIUM 8.3 mg/dL (8.4-10.2); CREATININE, SERUM 2.34 mg/dL (0.72-1.25); POTASSIUM 4.3 mmol/L (3.5-5.1)
[2020-05-19] MEDS: INSULIN LISPRO 100 UNIT/1 ML 3ML VIAL SQ SCH ×4 (07:30→20:00)
[2020-05-19] MEDS ORDERED: ONDANSETRON HCL 4 MG ORAL DISINTEGRATING TAB PO PRN (08:30)
[2020-05-19] MEDS: DOCUSATE SODIUM 100 MG CAP PO SCH ×2 (09:36→20:16)
[2020-05-19] MEDS: GEMFIBROZIL 600 MG TAB PO SCH ×2 (09:36→18:07)
[2020-05-19] MEDS: PRAMIPEXOLE DIHYDROCHLORIDE 0.25 MG TAB PO SCH ×3 (09:36→20:16)
[2020-05-19] MEDS: CEFEPIME 1GM/NS 0.9% 50 ML 50 ML IV SCH (09:36)
[2020-05-19] MEDS: CALCIUM CARBONATE 500 MG CHEWABLE TABS PO SCH ×2 (09:36→20:16)
[2020-05-19] MEDS: LEVODOPA PO SCH ×3 (09:36→20:16)
[2020-05-19] MEDS: CARBIDOPA PO SCH ×3 (09:36→20:16)
[2020-05-19] MEDS ORDERED: BISACODYL 10 MG SUPP PR ONE (10:00)
[2020-05-19] MEDS: ACETAMINOPHEN/CODEINE 300MG - 30MG TAB PO PRN (20:15)
[2020-05-19] MEDS: TAMSULOSIN HCL 0.4 MG CAP PO SCH (20:16)
[2020-05-20] VITALS (7 sets, daily range): BP systolic 110–136; BP diastolic 56–70
[2020-05-20] MEDS: INSULIN LISPRO 100 UNIT/1 ML 3ML VIAL SQ SCH ×4 (07:30→19:52)
[2020-05-20] MEDS: PRAMIPEXOLE DIHYDROCHLORIDE 0.25 MG TAB PO SCH ×3 (08:29→20:17)
[2020-05-20] MEDS: CARBIDOPA PO SCH ×3 (08:29→20:17)
[2020-05-20] MEDS: CALCIUM CARBONATE 500 MG CHEWABLE TABS PO SCH ×2 (08:29→20:17)
[2020-05-20] MEDS: DOCUSATE SODIUM 100 MG CAP PO SCH ×2 (08:29→20:17)
[2020-05-20] MEDS: LEVODOPA PO SCH ×3 (08:29→20:17)
[2020-05-20] MEDS: CEFEPIME 1GM/NS 0.9% 50 ML 50 ML IV SCH (08:29)
[2020-05-20] MEDS: GEMFIBROZIL 600 MG TAB PO SCH ×2 (08:29→18:16)
[2020-05-20] MEDS: RASAGILINE 1 MG TAB PO SCH (09:28)
[2020-05-20] MEDS: SODIUM CHLORIDE 0.9% 1000ML 1,000 ML IV SCH ×2 (09:42→19:52)
[2020-05-20 11:49] LABS: ANION GAP 12.8 mmol/L (8-16); CALCIUM 8.2 mg/dL (8.4-10.2); CREATININE, SERUM 2.98 mg/dL (0.72-1.25); POTASSIUM 3.8 mmol/L (3.5-5.1)
[2020-05-20] MEDS ORDERED: HEPARIN SOD (PORCINE) 1000 UNIT/ML SDV IV PRN (13:45)
[2020-05-20] MEDS: TAMSULOSIN HCL 0.4 MG CAP PO SCH (20:17)
[2020-05-21] VITALS (8 sets, daily range): BP systolic 139–148; BP diastolic 67–74
[2020-05-21] MEDS: SODIUM CHLORIDE 0.9% 1000ML 1,000 ML IV SCH ×2 (05:50→15:27)
[2020-05-21] MEDS: INSULIN LISPRO 100 UNIT/1 ML 3ML VIAL SQ SCH ×4 (07:30→21:00)
[2020-05-21] MEDS: CARBIDOPA PO SCH ×3 (09:05→21:02)
[2020-05-21] MEDS: RASAGILINE 1 MG TAB PO SCH (09:05)
[2020-05-21] MEDS: LEVODOPA PO SCH ×3 (09:05→21:02)
[2020-05-21] MEDS: DOCUSATE SODIUM 100 MG CAP PO SCH ×2 (09:05→21:02)
[2020-05-21] MEDS: CEFEPIME 1GM/NS 0.9% 50 ML 50 ML IV SCH (09:05)
[2020-05-21] MEDS: PRAMIPEXOLE DIHYDROCHLORIDE 0.25 MG TAB PO SCH ×3 (09:06→21:03)
[2020-05-21] MEDS: GEMFIBROZIL 600 MG TAB PO SCH ×2 (09:06→17:11)
[2020-05-21] MEDS: CALCIUM CARBONATE 500 MG CHEWABLE TABS PO SCH ×2 (09:06→21:03)
[2020-05-21] MEDS: TAMSULOSIN HCL 0.4 MG CAP PO SCH (21:02)
[2020-05-22] VITALS (10 sets, daily range): BP systolic 138–158; BP diastolic 66–80
[2020-05-22] MEDS: SODIUM CHLORIDE 0.9% 1000ML 1,000 ML IV SCH ×2 (01:42→12:27)
[2020-05-22 05:55] LABS: EOSINOPHILS # (AUTO) 0.4 (0.0-0.4); EOSINOPHILS % 9.5 % (0.0-6.0); HEMATOCRIT 26.6 % (38.2-49.6); HEMOGLOBIN 8.6 g/dL (14.0-18.0); LYMPHOCYTES # (AUTO) 0.7 (1.0-3.2); LYMPHOCYTES % 17.8 % (18.0-39.1); MEAN CORPUSCULAR HEMOGLOBIN 29.6 pg (28-32); MEAN CORPUSCULAR HGB CONC 32.3 g/dL (31-35); MEAN CORPUSCULAR VOLUME 91.4 fL (81-99); MONOCYTES # (AUTO) 0.7 (0.2-0.8); MONOCYTES % 16.9 % (4.4-11.3); NEUTROPHILS # (AUTO) 2.2 (2.1-6.9); NEUTROPHILS % 54.1 % (38.7-80.0); PLATELET COUNT 197 x10e3/uL (140-360); RED BLOOD COUNT 2.91 x10e6/uL (4.3-5.7); RED CELL DISTRIBUTION WIDTH 14.5 % (11.7-14.4)
[2020-05-22 06:18] LABS: ANION GAP 12.9 mmol/L (8-16); CALCIUM 8.2 mg/dL (8.4-10.2); CREATININE, SERUM 2.68 mg/dL (0.72-1.25); POTASSIUM 3.9 mmol/L (3.5-5.1)
[2020-05-22] MEDS: INSULIN LISPRO 100 UNIT/1 ML 3ML VIAL SQ SCH ×4 (07:30→21:00)
[2020-05-22] MEDS: CARBIDOPA PO SCH ×3 (10:08→21:20)
[2020-05-22] MEDS: RASAGILINE 1 MG TAB PO SCH (10:08)
[2020-05-22] MEDS: GEMFIBROZIL 600 MG TAB PO SCH ×2 (10:08→18:51)
[2020-05-22] MEDS: CEFEPIME 1GM/NS 0.9% 50 ML 50 ML IV SCH (10:08)
[2020-05-22] MEDS: LEVODOPA PO SCH ×3 (10:08→21:20)
[2020-05-22] MEDS: DOCUSATE SODIUM 100 MG CAP PO SCH ×2 (10:08→21:21)
[2020-05-22] MEDS: CALCIUM CARBONATE 500 MG CHEWABLE TABS PO SCH ×2 (10:08→21:21)
[2020-05-22] MEDS: PRAMIPEXOLE DIHYDROCHLORIDE 0.25 MG TAB PO SCH ×3 (10:08→21:21)
[2020-05-22] MEDS: ACETAMINOPHEN/CODEINE 300MG - 30MG TAB PO PRN (12:20)
[2020-05-22] MEDS: TAMSULOSIN HCL 0.4 MG CAP PO SCH (21:21)
[2020-05-23] VITALS (8 sets, daily range): BP systolic 133–162; BP diastolic 69–86
[2020-05-23 05:58] LABS: ANION GAP 14.5 mmol/L (8-16); CALCIUM 8.4 mg/dL (8.4-10.2); CREATININE, SERUM 2.99 mg/dL (0.72-1.25); POTASSIUM 4.5 mmol/L (3.5-5.1)
[2020-05-23] MEDS: INSULIN LISPRO 100 UNIT/1 ML 3ML VIAL SQ SCH ×4 (07:30→20:46)
[2020-05-23] MEDS: PRAMIPEXOLE DIHYDROCHLORIDE 0.25 MG TAB PO SCH ×3 (15:00→20:45)
[2020-05-23] MEDS: CARBIDOPA PO SCH ×3 (15:00→20:45)
[2020-05-23] MEDS: LEVODOPA PO SCH ×3 (15:00→20:45)
[2020-05-23] MEDS: GEMFIBROZIL 600 MG TAB PO SCH ×2 (15:02→17:00)
[2020-05-23] MEDS: DOCUSATE SODIUM 100 MG CAP PO SCH ×2 (15:02→20:45)
[2020-05-23] MEDS: RASAGILINE 1 MG TAB PO SCH (15:02)
[2020-05-23] MEDS: ACETAMINOPHEN/CODEINE 300MG - 30MG TAB PO PRN (15:04)
[2020-05-23] MEDS: CALCIUM CARBONATE 500 MG CHEWABLE TABS PO SCH ×2 (15:04→20:45)
[2020-05-23] MEDS: TAMSULOSIN HCL 0.4 MG CAP PO SCH (20:45)
[2020-05-24 05:30] VITALS: BP 144/77
[2020-05-24 06:13] LABS: ANION GAP 16.6 mmol/L (8-16); CALCIUM 8.8 mg/dL (8.4-10.2); CREATININE, SERUM 3.11 mg/dL (0.72-1.25); POTASSIUM 4.6 mmol/L (3.5-5.1)
[2020-05-24] MEDS: INSULIN LISPRO 100 UNIT/1 ML 3ML VIAL SQ SCH ×4 (07:30→20:25)
[2020-05-24 08:06] VITALS: BP 164/72
[2020-05-24] MEDS: CALCIUM CARBONATE 500 MG CHEWABLE TABS PO SCH ×2 (08:36→20:37)
[2020-05-24] MEDS: PRAMIPEXOLE DIHYDROCHLORIDE 0.25 MG TAB PO SCH ×3 (08:36→20:37)
[2020-05-24] MEDS: CARBIDOPA PO SCH ×3 (08:36→20:38)
[2020-05-24] MEDS: RASAGILINE 1 MG TAB PO SCH (08:36)
[2020-05-24] MEDS: DOCUSATE SODIUM 100 MG CAP PO SCH ×2 (08:36→20:38)
[2020-05-24] MEDS: GEMFIBROZIL 600 MG TAB PO SCH ×2 (08:36→17:26)
[2020-05-24] MEDS: LEVODOPA PO SCH ×3 (08:36→20:38)
[2020-05-24] MEDS: ACETAMINOPHEN/CODEINE 300MG - 30MG TAB PO PRN (11:08)
[2020-05-24 11:47] VITALS: BP 148/78
[2020-05-24 16:00] VITALS: BP 159/75
[2020-05-24 20:00] VITALS: BP 152/72
[2020-05-24 20:16] VITALS: BP 159/75
[2020-05-24] MEDS: TAMSULOSIN HCL 0.4 MG CAP PO SCH (20:37)
[2020-05-25] VITALS (8 sets, daily range): BP systolic 131–169; BP diastolic 68–86
[2020-05-25 06:02] LABS: BASOPHILS # (AUTO) 0.1 (0.0-0.1); EOSINOPHILS # (AUTO) 0.5 (0.0-0.4); EOSINOPHILS % 7.7 % (0.0-6.0); HEMATOCRIT 34.1 % (38.2-49.6); HEMOGLOBIN 10.8 g/dL (14.0-18.0); LYMPHOCYTES # (AUTO) 0.9 (1.0-3.2); LYMPHOCYTES % 14.4 % (18.0-39.1); MEAN CORPUSCULAR HEMOGLOBIN 27.4 pg (28-32); MEAN CORPUSCULAR HGB CONC 31.7 g/dL (31-35); MEAN CORPUSCULAR VOLUME 86.5 fL (81-99); MONOCYTES # (AUTO) 0.6 (0.2-0.8); MONOCYTES % 10.1 % (4.4-11.3); NEUTROPHILS % 65.7 % (38.7-80.0); PLATELET COUNT 296 x10e3/uL (140-360); RED BLOOD COUNT 3.94 x10e6/uL (4.3-5.7); RED CELL DISTRIBUTION WIDTH 13.6 % (11.7-14.4)
[2020-05-25 06:32] LABS: ALBUMIN 2.3 g/dL (3.5-5.0); ALBUMIN/GLOBULIN RATIO 0.5 (0.8-2.0); ALKALINE PHOSPHATASE 68 IU/L (40-150); ANION GAP 18.7 mmol/L (8-16); BLOOD UREA NITROGEN 40 mg/dL (7-26); BUN/CREATININE RATIO 13 (6-25); CALCIUM 9.4 mg/dL (8.4-10.2); CARBON DIOXIDE 24 mmol/L (22-29); CHLORIDE 101 mmol/L (98-107); EST GLOMERULAR FILTRATION RATE 19 ML/MIN (60-); GLUCOSE 120 mg/dL (74-118); POTASSIUM 4.7 mmol/L (3.5-5.1); SODIUM 139 mmol/L (136-145)
[2020-05-25 06:55] LABS: ALANINE AMINOTRANSFERASE < 6 IU/L (0-55)
[2020-05-25] MEDS: INSULIN LISPRO 100 UNIT/1 ML 3ML VIAL SQ SCH ×4 (07:18→21:00)
[2020-05-25] MEDS: CARBIDOPA PO SCH ×3 (09:00→20:25)
[2020-05-25] MEDS: LEVODOPA PO SCH ×3 (09:00→20:25)
[2020-05-25] MEDS: RASAGILINE 1 MG TAB PO SCH (10:00)
[2020-05-25] MEDS: GEMFIBROZIL 600 MG TAB PO SCH ×2 (10:00→17:34)
[2020-05-25] MEDS: CALCIUM CARBONATE 500 MG CHEWABLE TABS PO SCH ×2 (10:00→20:26)
[2020-05-25] MEDS: PRAMIPEXOLE DIHYDROCHLORIDE 0.25 MG TAB PO SCH ×3 (10:00→20:26)
[2020-05-25] MEDS: DOCUSATE SODIUM 100 MG CAP PO SCH ×2 (10:00→20:25)
[2020-05-25] MEDS: TAMSULOSIN HCL 0.4 MG CAP PO SCH (20:25)
[2020-05-26] VITALS (7 sets, daily range): BP systolic 132–158; BP diastolic 64–98
[2020-05-26 05:25] LABS: BASOPHILS % 0.6 % (0.0-1.0); EOSINOPHILS # (AUTO) 0.5 (0.0-0.4); EOSINOPHILS % 9.8 % (0.0-6.0); HEMATOCRIT 29.1 % (38.2-49.6); HEMOGLOBIN 9.5 g/dL (14.0-18.0); LYMPHOCYTES # (AUTO) 0.8 (1.0-3.2); LYMPHOCYTES % 16.8 % (18.0-39.1); MEAN CORPUSCULAR HEMOGLOBIN 28.1 pg (28-32); MEAN CORPUSCULAR HGB CONC 32.6 g/dL (31-35); MEAN CORPUSCULAR VOLUME 86.1 fL (81-99); MONOCYTES # (AUTO) 0.6 (0.2-0.8); MONOCYTES % 11.9 % (4.4-11.3); NEUTROPHILS # (AUTO) 2.9 (2.1-6.9); NEUTROPHILS % 59.9 % (38.7-80.0); PLATELET COUNT 263 x10e3/uL (140-360); RED BLOOD COUNT 3.38 x10e6/uL (4.3-5.7); RED CELL DISTRIBUTION WIDTH 13.7 % (11.7-14.4)
[2020-05-26 06:00] LABS: ALBUMIN 2.1 g/dL (3.5-5.0); ALBUMIN/GLOBULIN RATIO 0.6 (0.8-2.0); ALKALINE PHOSPHATASE 62 IU/L (40-150); ANION GAP 13.6 mmol/L (8-16); BLOOD UREA NITROGEN 39 mg/dL (7-26); BUN/CREATININE RATIO 12 (6-25); CALCIUM 8.8 mg/dL (8.4-10.2); CARBON DIOXIDE 26 mmol/L (22-29); CHLORIDE 104 mmol/L (98-107); CREATININE, SERUM 3.15 mg/dL (0.72-1.25); EST GLOMERULAR FILTRATION RATE 19 ML/MIN (60-); GLUCOSE 109 mg/dL (74-118); POTASSIUM 4.6 mmol/L (3.5-5.1); SODIUM 139 mmol/L (136-145)
[2020-05-26 06:01] LABS: ALANINE AMINOTRANSFERASE < 6 IU/L (0-55)
[2020-05-26] MEDS: INSULIN LISPRO 100 UNIT/1 ML 3ML VIAL SQ SCH ×4 (07:30→21:00)
[2020-05-26] MEDS: RASAGILINE 1 MG TAB PO SCH (09:50)
[2020-05-26] MEDS: CALCIUM CARBONATE 500 MG CHEWABLE TABS PO SCH ×2 (09:50→22:46)
[2020-05-26] MEDS: GEMFIBROZIL 600 MG TAB PO SCH ×2 (09:50→17:07)
[2020-05-26] MEDS: PRAMIPEXOLE DIHYDROCHLORIDE 0.25 MG TAB PO SCH ×3 (09:50→22:46)
[2020-05-26] MEDS: CARBIDOPA PO SCH ×3 (09:50→22:44)
[2020-05-26] MEDS: DOCUSATE SODIUM 100 MG CAP PO SCH ×2 (09:50→22:46)
[2020-05-26] MEDS: LEVODOPA PO SCH ×3 (09:50→22:44)
[2020-05-26] MEDS: TAMSULOSIN HCL 0.4 MG CAP PO SCH (22:46)
[2020-05-27] VITALS (9 sets, daily range): BP systolic 123–160; BP diastolic 62–87
[2020-05-27 06:19] LABS: ANION GAP 14.6 mmol/L (8-16); CREATININE, SERUM 3.33 mg/dL (0.72-1.25); POTASSIUM 4.6 mmol/L (3.5-5.1)
[2020-05-27] MEDS: INSULIN LISPRO 100 UNIT/1 ML 3ML VIAL SQ SCH ×4 (07:30→21:33)
[2020-05-27] MEDS: RASAGILINE 1 MG TAB PO SCH (08:20)
[2020-05-27] MEDS: PRAMIPEXOLE DIHYDROCHLORIDE 0.25 MG TAB PO SCH ×3 (08:20→21:31)
[2020-05-27] MEDS: LEVODOPA PO SCH ×3 (08:20→21:31)
[2020-05-27] MEDS: CARBIDOPA PO SCH ×3 (08:20→21:31)
[2020-05-27] MEDS: DOCUSATE SODIUM 100 MG CAP PO SCH ×2 (08:20→21:31)
[2020-05-27] MEDS: GEMFIBROZIL 600 MG TAB PO SCH ×2 (08:20→17:00)
[2020-05-27] MEDS: CALCIUM CARBONATE 500 MG CHEWABLE TABS PO SCH ×2 (08:20→21:31)
[2020-05-27] MEDS: TAMSULOSIN HCL 0.4 MG CAP PO SCH (21:31)
[2020-05-28] VITALS (8 sets, daily range): BP systolic 140–161; BP diastolic 70–80
[2020-05-28 06:04] LABS: BASOPHILS # (AUTO) 0.1 (0.0-0.1); BASOPHILS % 0.7 % (0.0-1.0); EOSINOPHILS # (AUTO) 0.5 (0.0-0.4); EOSINOPHILS % 7.4 % (0.0-6.0); HEMATOCRIT 29.8 % (38.2-49.6); HEMOGLOBIN 9.5 g/dL (14.0-18.0); LYMPHOCYTES # (AUTO) 1.1 (1.0-3.2); LYMPHOCYTES % 15.1 % (18.0-39.1); MEAN CORPUSCULAR HEMOGLOBIN 27.6 pg (28-32); MEAN CORPUSCULAR HGB CONC 31.9 g/dL (31-35); MEAN CORPUSCULAR VOLUME 86.6 fL (81-99); MONOCYTES # (AUTO) 0.7 (0.2-0.8); MONOCYTES % 10.3 % (4.4-11.3); NEUTROPHILS # (AUTO) 4.6 (2.1-6.9); NEUTROPHILS % 65.4 % (38.7-80.0); PLATELET COUNT 288 x10e3/uL (140-360); RED BLOOD COUNT 3.44 x10e6/uL (4.3-5.7); RED CELL DISTRIBUTION WIDTH 13.8 % (11.7-14.4)
[2020-05-28 06:26] LABS: ANION GAP 13.6 mmol/L (8-16); CALCIUM 8.8 mg/dL (8.4-10.2); POTASSIUM 4.6 mmol/L (3.5-5.1)
[2020-05-28 06:49] LABS: CREATININE, SERUM 3.43 mg/dL (0.72-1.25)
[2020-05-28] MEDS: INSULIN LISPRO 100 UNIT/1 ML 3ML VIAL SQ SCH ×4 (07:30→19:27)
[2020-05-28] MEDS: GEMFIBROZIL 600 MG TAB PO SCH ×2 (09:00→17:00)
[2020-05-28] MEDS: CARBIDOPA PO SCH ×3 (09:00→21:03)
[2020-05-28] MEDS: RASAGILINE 1 MG TAB PO SCH (09:00)
[2020-05-28] MEDS: LEVODOPA PO SCH ×3 (09:00→21:03)
[2020-05-28] MEDS: PRAMIPEXOLE DIHYDROCHLORIDE 0.25 MG TAB PO SCH ×3 (09:00→21:03)
[2020-05-28] MEDS: CALCIUM CARBONATE 500 MG CHEWABLE TABS PO SCH ×2 (09:00→21:03)
[2020-05-28] MEDS: DOCUSATE SODIUM 100 MG CAP PO SCH ×2 (09:00→21:03)
[2020-05-28] MEDS: TAMSULOSIN HCL 0.4 MG CAP PO SCH (21:03)
[2020-05-29] VITALS (7 sets, daily range): BP systolic 132–158; BP diastolic 65–77
[2020-05-29 05:14] LABS: BASOPHILS # (AUTO) 0.1 (0.0-0.1); BASOPHILS % 0.8 % (0.0-1.0); EOSINOPHILS # (AUTO) 0.6 (0.0-0.4); EOSINOPHILS % 9.5 % (0.0-6.0); HEMATOCRIT 30.3 % (38.2-49.6); HEMOGLOBIN 9.7 g/dL (14.0-18.0); LYMPHOCYTES # (AUTO) 1.2 (1.0-3.2); MEAN CORPUSCULAR HEMOGLOBIN 27.4 pg (28-32); MEAN CORPUSCULAR VOLUME 85.6 fL (81-99); MONOCYTES # (AUTO) 0.6 (0.2-0.8); MONOCYTES % 9.9 % (4.4-11.3); NEUTROPHILS # (AUTO) 3.8 (2.1-6.9); NEUTROPHILS % 60.1 % (38.7-80.0); PLATELET COUNT 292 x10e3/uL (140-360); RED BLOOD COUNT 3.54 x10e6/uL (4.3-5.7); RED CELL DISTRIBUTION WIDTH 13.8 % (11.7-14.4)
[2020-05-29 05:37] LABS: ANION GAP 13.7 mmol/L (8-16); CALCIUM 8.8 mg/dL (8.4-10.2); CREATININE, SERUM 3.56 mg/dL (0.72-1.25); POTASSIUM 4.7 mmol/L (3.5-5.1)
[2020-05-29] MEDS: INSULIN LISPRO 100 UNIT/1 ML 3ML VIAL SQ SCH ×4 (07:14→20:07)
[2020-05-29] MEDS: PRAMIPEXOLE DIHYDROCHLORIDE 0.25 MG TAB PO SCH ×3 (08:32→20:35)
[2020-05-29] MEDS: LEVODOPA PO SCH ×3 (08:32→20:34)
[2020-05-29] MEDS: CALCIUM CARBONATE 500 MG CHEWABLE TABS PO SCH ×2 (08:32→20:35)
[2020-05-29] MEDS: DOCUSATE SODIUM 100 MG CAP PO SCH ×2 (08:32→20:35)
[2020-05-29] MEDS: RASAGILINE 1 MG TAB PO SCH (08:32)
[2020-05-29] MEDS: CARBIDOPA PO SCH ×3 (08:32→20:34)
[2020-05-29] MEDS: GEMFIBROZIL 600 MG TAB PO SCH ×2 (08:32→16:35)
[2020-05-29] MEDS: TAMSULOSIN HCL 0.4 MG CAP PO SCH (20:35)
[2020-05-30] VITALS (8 sets, daily range): BP systolic 129–148; BP diastolic 60–79
[2020-05-30] MEDS: INSULIN LISPRO 100 UNIT/1 ML 3ML VIAL SQ SCH ×4 (07:28→20:16)
[2020-05-30] MEDS: RASAGILINE 1 MG TAB PO SCH (08:47)
[2020-05-30] MEDS: CARBIDOPA PO SCH ×3 (08:47→20:47)
[2020-05-30] MEDS: LEVODOPA PO SCH ×3 (08:47→20:47)
[2020-05-30] MEDS: PRAMIPEXOLE DIHYDROCHLORIDE 0.25 MG TAB PO SCH ×3 (08:47→20:47)
[2020-05-30] MEDS: GEMFIBROZIL 600 MG TAB PO SCH ×2 (08:47→17:05)
[2020-05-30] MEDS: DOCUSATE SODIUM 100 MG CAP PO SCH ×2 (08:47→20:47)
[2020-05-30] MEDS: CALCIUM CARBONATE 500 MG CHEWABLE TABS PO SCH ×2 (08:47→20:47)
[2020-05-30 11:07] LABS: BASOPHILS # (AUTO) 0.1 (0.0-0.1); BASOPHILS % 0.8 % (0.0-1.0); EOSINOPHILS # (AUTO) 0.6 (0.0-0.4); EOSINOPHILS % 7.7 % (0.0-6.0); HEMATOCRIT 32.8 % (38.2-49.6); HEMOGLOBIN 10.5 g/dL (14.0-18.0); LYMPHOCYTES % 13.8 % (18.0-39.1); MEAN CORPUSCULAR HEMOGLOBIN 27.6 pg (28-32); MEAN CORPUSCULAR VOLUME 86.3 fL (81-99); MONOCYTES # (AUTO) 0.6 (0.2-0.8); MONOCYTES % 8.9 % (4.4-11.3); NEUTROPHILS # (AUTO) 4.9 (2.1-6.9); NEUTROPHILS % 67.8 % (38.7-80.0); PLATELET COUNT 321 x10e3/uL (140-360); RED CELL DISTRIBUTION WIDTH 13.7 % (11.7-14.4)
[2020-05-30 11:55] LABS: ALBUMIN 2.6 g/dL (3.5-5.0); ALBUMIN/GLOBULIN RATIO 0.7 (0.8-2.0); ALKALINE PHOSPHATASE 69 IU/L (40-150); BLOOD UREA NITROGEN 31 mg/dL (7-26); BUN/CREATININE RATIO 8 (6-25); CALCIUM 8.8 mg/dL (8.4-10.2); CARBON DIOXIDE 27 mmol/L (22-29); CHLORIDE 99 mmol/L (98-107); EST GLOMERULAR FILTRATION RATE 16 ML/MIN (60-); GLUCOSE 107 mg/dL (74-118); SODIUM 136 mmol/L (136-145)
[2020-05-30 12:28] LABS: ALANINE AMINOTRANSFERASE < 6 IU/L (0-55)
[2020-05-30] MEDS: TAMSULOSIN HCL 0.4 MG CAP PO SCH (20:47)
[2020-05-31] VITALS (7 sets, daily range): BP systolic 134–144; BP diastolic 67–78
[2020-05-31 05:51] LABS: ALBUMIN 2.6 g/dL (3.5-5.0); ALBUMIN/GLOBULIN RATIO 0.7 (0.8-2.0); ALKALINE PHOSPHATASE 68 IU/L (40-150); ANION GAP 14.8 mmol/L (8-16); BLOOD UREA NITROGEN 29 mg/dL (7-26); BUN/CREATININE RATIO 8 (6-25); CALCIUM 8.6 mg/dL (8.4-10.2); CARBON DIOXIDE 26 mmol/L (22-29); CHLORIDE 101 mmol/L (98-107); CREATININE, SERUM 3.81 mg/dL (0.72-1.25); EST GLOMERULAR FILTRATION RATE 16 ML/MIN (60-); GLUCOSE 95 mg/dL (74-118); POTASSIUM 4.8 mmol/L (3.5-5.1); SODIUM 137 mmol/L (136-145)
[2020-05-31 05:57] LABS: ALANINE AMINOTRANSFERASE < 6 IU/L (0-55)
[2020-05-31] MEDS: INSULIN LISPRO 100 UNIT/1 ML 3ML VIAL SQ SCH ×4 (07:30→21:14)
[2020-05-31] MEDS: PRAMIPEXOLE DIHYDROCHLORIDE 0.25 MG TAB PO SCH ×3 (10:00→21:04)
[2020-05-31] MEDS: DOCUSATE SODIUM 100 MG CAP PO SCH ×2 (10:00→21:04)
[2020-05-31] MEDS: LEVODOPA PO SCH ×3 (10:00→21:04)
[2020-05-31] MEDS: CALCIUM CARBONATE 500 MG CHEWABLE TABS PO SCH ×2 (10:00→21:08)
[2020-05-31] MEDS: RASAGILINE 1 MG TAB PO SCH (10:00)
[2020-05-31] MEDS: GEMFIBROZIL 600 MG TAB PO SCH ×2 (10:00→16:38)
[2020-05-31] MEDS: CARBIDOPA PO SCH ×3 (10:00→21:04)
[2020-05-31] MEDS: TAMSULOSIN HCL 0.4 MG CAP PO SCH (21:04)
[2020-06-01] VITALS (8 sets, daily range): BP systolic 120–144; BP diastolic 53–77
[2020-06-01 06:42] LABS: ANION GAP 14.4 mmol/L (8-16); CALCIUM 8.4 mg/dL (8.4-10.2); CREATININE, SERUM 3.95 mg/dL (0.72-1.25); POTASSIUM 5.4 mmol/L (3.5-5.1)
[2020-06-01] MEDS: INSULIN LISPRO 100 UNIT/1 ML 3ML VIAL SQ SCH ×4 (07:30→20:55)
[2020-06-01] MEDS: CARBIDOPA PO SCH ×3 (08:53→21:16)
[2020-06-01] MEDS: LEVODOPA PO SCH ×3 (08:53→21:16)
[2020-06-01] MEDS: CALCIUM CARBONATE 500 MG CHEWABLE TABS PO SCH ×2 (08:53→21:16)
[2020-06-01] MEDS: PRAMIPEXOLE DIHYDROCHLORIDE 0.25 MG TAB PO SCH ×3 (08:53→21:16)
[2020-06-01] MEDS: RASAGILINE 1 MG TAB PO SCH (08:53)
[2020-06-01] MEDS: GEMFIBROZIL 600 MG TAB PO SCH ×2 (08:53→17:00)
[2020-06-01] MEDS: DOCUSATE SODIUM 100 MG CAP PO SCH ×2 (08:53→21:16)
[2020-06-01] MEDS ORDERED: HEPARIN SOD (PORCINE) 1000 UNIT/ML SDV ONE (13:01)
[2020-06-01] MEDS: TAMSULOSIN HCL 0.4 MG CAP PO SCH (21:16)
[2020-06-02] VITALS: BP 133/62
[2020-06-02 04:00] VITALS: BP 130/65
[2020-06-02 06:41] LABS: ANION GAP 12.6 mmol/L (8-16); CALCIUM 8.3 mg/dL (8.4-10.2); CREATININE, SERUM 2.99 mg/dL (0.72-1.25); POTASSIUM 4.6 mmol/L (3.5-5.1)
[2020-06-02] MEDS: INSULIN LISPRO 100 UNIT/1 ML 3ML VIAL SQ SCH ×3 (07:30→16:30)
[2020-06-02 08:00] VITALS: BP 144/62
[2020-06-02 08:29] VITALS: BP 130/65
[2020-06-02] MEDS: GEMFIBROZIL 600 MG TAB PO SCH ×2 (08:51→17:16)
[2020-06-02] MEDS: PRAMIPEXOLE DIHYDROCHLORIDE 0.25 MG TAB PO SCH ×2 (08:51→15:42)
[2020-06-02] MEDS: CALCIUM CARBONATE 500 MG CHEWABLE TABS PO SCH (08:51)
[2020-06-02] MEDS: LEVODOPA PO SCH ×2 (08:51→15:42)
[2020-06-02] MEDS: RASAGILINE 1 MG TAB PO SCH (08:51)
[2020-06-02] MEDS: DOCUSATE SODIUM 100 MG CAP PO SCH (08:51)
[2020-06-02] MEDS: CARBIDOPA PO SCH ×2 (08:51→15:42)
[2020-06-02 11:53] VITALS: BP 119/63
[2020-06-02] MEDS ORDERED: HUMALOG100 UNIT/1 (15:26)
== END 2020-06-02 20:00 | DRG 656 ==
LOC: OR 10:48 → MED/SURG 19:26
PROVIDERS: ADMIT Family Medicine; ATTEND Family Medicine
PROC: 0T7D8ZZ Dilation of Urethra, Via Natural or Artificial Opening Endoscopic (ICD-10-PCS; 2020-05-15)
PROC: 0TT00ZZ Resection of Right Kidney, Open Approach (ICD-10-PCS; principal; 2020-05-15 13:00)
PROC: 02HV33Z Insertion of Infusion Device into Superior Vena Cava, Percutaneous Approach (ICD-10-PCS; 2020-05-17)
PROC: 5A1D70Z Performance of Urinary Filtration, Intermittent, Less than 6 Hours Per Day (ICD-10-PCS; 2020-05-17)
DX: C64.1 Malignant neoplasm of right kidney, except renal pelvis (principal); G93.41 Metabolic encephalopathy; N18.6 End stage renal disease; N17.9 Acute kidney failure, unspecified; N39.0 Urinary tract infection, site not specified; I69.354 Hemiplegia and hemiparesis following cerebral infarction affecting left non-dominant side; I12.0 Hypertensive chronic kidney disease with stage 5 chronic kidney disease or end stage renal disease; E44.0 Moderate protein-calorie malnutrition; N35.919 Unspecified urethral stricture, male, unspecified site; R31.0 Gross hematuria; N45.3 Epididymo-orchitis; N28.1 Cyst of kidney, acquired; N40.1 Benign prostatic hyperplasia with lower urinary tract symptoms; R35.1 Nocturia; E83.51 Hypocalcemia; E87.5 Hyperkalemia; G20 Parkinson's disease; Z99.2 Dependence on renal dialysis; Z68.30 Body mass index [BMI] 30.0-30.9, adult; E11.22 Type 2 diabetes mellitus with diabetic chronic kidney disease; D63.1 Anemia in chronic kidney disease; E78.00 Pure hypercholesterolemia, unspecified; I25.2 Old myocardial infarction; Z20.822 Contact with and (suspected) exposure to COVID-19
CPT/HCPCS: 36415; 36556; 70450; 71045; 71046; 74470; 76937; 77001; 80048; 80053; 82140; 82948; 83735; 84132; 84550; 85025; 85610; 85730; 86705; 86706; 86707; 86850; 86900; 86920; 87340; 87350; 88300; 88305; 88307; 88309; 88329; 88331; 90962; 93005; 93925; 96372; 97139; 99251; C1752; C1769; J0610; J0692; J1100; J1580; J1644; J1817; J1940; J2001; J2150; J2250; J2270; J2405; J2710; J3010; J7030; J7050; J7799; P9016; Q0162; U0002

== ENCOUNTER → 2020-09-28 | Outpatient (CLI) | payer MEDICARE ==
[~2020-09-28] MED LIST changes: +HUMALOG100 UNIT/1
== END ==
LOC: US 10:30
PROVIDERS: ATTEND Urology
DX: C64.1 Malignant neoplasm of right kidney, except renal pelvis (principal)
CPT/HCPCS: 71046; 76770